=== PATIENT | female | born 1970 | race Caucasian/White ===

== ENCOUNTER 2016-12-01 00:50 | Emergency (ER) | payer MEDICAID ==
[2016-12-01] MEDS ORDERED: HYDROCODONE/ACETAMINOPHEN 5-325 MG 6 TAB/DSPK PO PRN (02:16)
[2016-12-01] MEDS ORDERED: AMOXICILLIN TR/POT CLAVULANATE 500-125 MG TAB PO ONE (02:16)
[2016-12-01] MEDS ORDERED: AMOXICILLIN TRIHYDRATE 500 MG CAPSULE PO ONE (02:16)
--- NOTE | 2016-12-01 02:20 | ER Document Report ---
ED Animal Bite - General Chief Complaint: Dog Bite Stated Complaint: POSSIBLE DOG BITE Time Seen by Provider: 12/01/16 01:54 Notes: Patient is a 46-year-old female that comes emergency department for chief complaint of a bite wound on her left thumb. Patient was bitten by a pit bull. Patient states that she approached her neighbors dog and padded it, she states after this it bit her on the thumb. She states she was bleeding at the cuticle , she thinks she cracked the nail. No other injuries noted. Patient is up-to- date on her tetanus within 5 years, neighbor reported that the dog was up-to- date on his vaccinations although the left with the dog before animal control could be called. Patient is a type II diabetic. TRAVEL OUTSIDE OF THE [place] IN LAST 30 DAYS: No - Related Data Allergies/Adverse Reactions: No Known Allergies Allergy (Unverified 12/01/16 01:00) Past Medical History - General Information source: Patient - Social History Smoking Status: Current Every Day Smoker Chew tobacco use (# tins/day): No Frequency of alcohol use: None Drug Abuse: None Lives with: Family Family History: Reviewed & Not Pertinent Patient has suicidal ideation: No Patient has homicidal ideation: No Endocrine Medical History: Reports: Hx Diabetes Mellitus Type 2 Renal/ Medical History: Denies: Hx Peritoneal Dialysis Past Surgical History: Reports: Hx Section - Immunizations Hx Diphtheria, Pertussis, Tetanus Vaccination: Yes Review of Systems - Review of Systems Constitutional: No symptoms reported EENT: No symptoms reported Cardiovascular: No symptoms reported Respiratory: No symptoms reported Gastrointestinal: No symptoms reported Genitourinary: No symptoms reported Female Genitourinary: No symptoms reported Musculoskeletal: See HPI Skin: See HPI Hematologic/Lymphatic: No symptoms reported Neurological/Psychological: No symptoms reported Physical Exam - Vital signs Vitals: Temp Pulse Resp BP Pulse Ox 98.1 F 87 18 115/70 98 12/01/16 00:56 12/01/16 00:56 12/01/16 00:56 12/01/16 00:56 12/01/16 00:56 Interpretation: Normal - General General appearance: Appears well, Alert In distress: None - HEENT Head: Normocephalic, Atraumatic Eyes: Normal Pupils: PERRL - Respiratory Respiratory status: No respiratory distress Chest status: Nontender Breath sounds: Normal Chest palpation: Normal - Cardiovascular Rhythm: Regular Heart sounds: Normal auscultation Murmur: No - Abdominal Inspection: Normal Distension: No distension Bowel sounds: Normal Tenderness: Nontender Organomegaly: No organomegaly - Back Back: Normal, Nontender - Extremities General upper extremity: Other - There is a small bruise and superficial abrasions over the dorsal aspect of the left thumb, range of motion of the thumb intact, there is a tiny cut at the cuticle with small amount of dried blood, there is a small crack over the nail. No displacement of the nail, normal capillary refill and sensation, normal upper extremity exam otherwise. General lower extremity: Normal inspection, Nontender, Normal color, Normal ROM , Normal temperature, Normal weight bearing. No: Padma's sign - Neurological Neuro grossly intact: Yes Cognition: Normal Orientation: AAOx4 [place] Coma Scale Eye Opening: Spontaneous [place] Coma Scale Verbal: Oriented [place] Coma Scale Motor: Obeys Commands [place] Coma Scale Total: 15 Speech: Normal Motor strength normal: LUE, RUE, LLE, RLE Sensory: Normal - Psychological Associated symptoms: Normal affect, Normal mood - Skin Skin Temperature: Warm Skin Moisture: Dry Skin Color: Normal Course - Re-evaluation Re-evalutation: Discussed both potential x-ray to evaluate for fracture and I also discussed rabies vaccination/globulin. Patient declines, she states that her son received this and she is not interested in this, does not want an x-ray, x-ray will not change treatment. Patient will be started on antibiotics for dog bite , discussed wound care, discussed follow-up, discussed return precautions, patient states understanding and agreement. - Vital Signs Vital signs: Temp Pulse Resp BP Pulse Ox 98 F 87 20 117/70 95 12/01/16 02:25 12/01/16 02:25 12/01/16 02:25 12/01/16 02:25 12/01/16 02:25 Discharge - Discharge Clinical Impression: Dog bite Qualifiers: Encounter type: initial encounter Qualified Code(s): W54.0XXA - Bitten by dog, initial encounter Finger laceration Qualifiers: Encounter type: initial encounter Finger: thumb Damage to nail status: unspecified Foreign body presence: without foreign body Laterality: left Qualified Code(s): S61.012A - Laceration without foreign body of left thumb without damage to nail, initial encounter Condition: Stable Disposition: HOME, SELF-CARE Additional Instructions: Keep wound clean, take antibiotic as directed to completion. Clean with soap and water, keep topical antibiotic over cut. Return for any concerning symptoms- redness, fever, discolored discharge, etc. Prescriptions: Amox Tr/Potassium Clavulanate [Augmentin 635-125 Tablet] 1 tab PO BID 7 Days Forms: Return to Work
[2016-12-01 02:26] VITALS: BP 117/70
== END 2016-12-01 02:36 | disposition home or self-care (01) ==
LOC: ER 00:50
DX: S61.012A Laceration without foreign body of left thumb without damage to nail, initial encounter (principal); W54.0XXA Bitten by dog, initial encounter; F17.200 Nicotine dependence, unspecified, uncomplicated; E11.9 Type 2 diabetes mellitus without complications
CPT/HCPCS: 99283; J3490

== ENCOUNTER 2017-01-11 13:06 | Emergency (ER) | payer MEDICAID ==
--- NOTE | 2017-01-11 13:32 | ER Document Report ---
ED Medical Screen (RME) - General Chief Complaint: Urinary Problem Stated Complaint: ABDOMINAL PAIN Time Seen by Provider: 01/11/17 13:29 Mode of Arrival: Ambulatory Information source: Patient TRAVEL OUTSIDE OF THE [place] IN LAST 30 DAYS: No - HPI Patient complains to provider of: I think I have a prolapsed vagina" Onset: Yesterday - Pt noticed a bulging out of her vaginal area yesterday but was unable to have it evaluated then because, "I slept all day." Is able to make urine but decreased amnt. - Related Data Allergies/Adverse Reactions: No Known Allergies Allergy (Unverified 12/01/16 01:00) Past Medical History Endocrine Medical History: Reports: Hx Diabetes Mellitus Type 2 Renal/ Medical History: Denies: Hx Peritoneal Dialysis Past Surgical History: Reports: Hx Section - Immunizations Hx Diphtheria, Pertussis, Tetanus Vaccination: Yes Physical Exam - Vital signs Vitals: Temp Pulse Resp BP Pulse Ox 98.7 F 120 H 20 114/86 H 99 01/11/17 13:09 01/11/17 13:09 01/11/17 13:09 01/11/17 13:09 01/11/17 13:09 Course - Vital Signs Vital signs: Temp Pulse Resp BP Pulse Ox 98.7 F 120 H 20 114/86 H 99 01/11/17 13:09 01/11/17 13:09 01/11/17 13:09 01/11/17 13:09 01/11/17 13:09
[2017-01-11 14:05] LABS: ABSOLUTE BASOPHILS # (AUTO) 0.1 10^3/uL (0.0-0.2); ABSOLUTE EOSINOPHILS # (AUTO) 0.3 10^3/uL (0.0-0.6); ABSOLUTE LYMPHOCYTES (AUTO) 2.8 10^3/uL (0.5-4.7); ABSOLUTE MONOCYTES (AUTO) 0.7 10^3/uL (0.1-1.4); BASOPHILS % (AUTO) 0.6 % (0-2); EOSINOPHILS % (AUTO) 2.1 % (0-6); HEMATOCRIT 48.5 % (36.0-47.0); HGB HCT DIFFERENCE 2.5; LYMPHOCYTES % (AUTO) 18.8 % (13-45); MEAN CORPUSCULAR VOLUME 91 fl (80-97); RED BLOOD COUNT 5.31 10^6/uL (3.72-5.28); RED CELL DISTRIBUTION WIDTH 13.4 % (11.5-14.0); SEGMENTED NEUTROPHILS % (AUTO) 73.5 % (42-78)
[2017-01-11 14:07] LABS: APPEARANCE,URINE CLOUDY; BILIRUBIN,URINE NEGATIVE (NEGATIVE); GLUCOSE, URINE >=500 mg/dL (NEGATIVE); KETONES,URINE TRACE mg/dL (NEGATIVE); LEUKOCYTE ESTERASE,URINE LARGE (NEGATIVE); NITRITE,URINE NEGATIVE (NEGATIVE); PROTEIN,URINE NEGATIVE (NEGATIVE); URINE SPECIFIC GRAVITY 1.038; UROBILINOGEN,URINE NEGATIVE mg/dL (<2.0)
[2017-01-11 14:14] LABS: ALANINE AMINOTRANSFERASE 37 U/L (9-52); ALBUMIN 4.5 g/dL (3.5-5.0); ALKALINE PHOSPHATASE 123 U/L (38-126); ANION GAP 15 (5-19); ASPARTATE AMINO TRANSFERASE 20 U/L (14-36); BILIRUBIN,DIRECT 0.4 mg/dL (0.0-0.4); BILIRUBIN,TOTAL 0.7 mg/dL (0.2-1.3); BLOOD UREA NITROGEN 9 mg/dL (7-20); CALCIUM 10.6 mg/dL (8.4-10.2); CARBON DIOXIDE 22 mmol/L (22-30); CHLORIDE 99 mmol/L (98-107); CREATININE RESULT 0.61 mg/dL (0.52-1.25); POTASSIUM 4.6 mmol/L (3.6-5.0); SODIUM 135.7 mmol/L (137-145); TOTAL PROTEIN 7.6 g/dL (6.3-8.2)
[2017-01-11] MEDS ORDERED: NORMAL SALINE 1000 ML 2,000 ML IV ONE (14:28)
[2017-01-11 14:30] LABS: GLUCOSE 397 mg/dL (75-110)
[2017-01-11 14:31] LABS: ADD ON TESTING BLD IN LAB ACKNOWLEDGE
[2017-01-11 14:54] LABS: LIPASE 160.8 U/L (23-300)
[2017-01-11] MEDS ORDERED: CEFTRIAXONE RTU 1 GM/D5W 50 ML IV ONE (15:16)
[2017-01-11] MEDS ORDERED: AZITHROMYCIN 250 MG TABLET PO ONE (15:16)
--- NOTE | 2017-01-11 15:19 | ER Document Report ---
HPI - HPI Patient complains to provider of: bladder prolapse Onset: This morning Onset/Duration: Gradual Quality of pain: Burning Pain Level: 5 Context: Patient presents complaining of possible bladder prolapse. Patient complains of discomfort to the perineal area and is concerned that something is bulging from her vagina. Patient reports decreased urine output over the past few days. Patient does complain of low back pain and lower pelvic pain. Patient denies any vaginal bleeding or discharge. Patient states that she suspects that she has skin tags to the perineal area that she has been treating daily with clear fingernail mongolian and removing it with fingernail mongolian remover daily for the past 2 weeks. Associated Symptoms: Other - Decreased urine output, bulge to perineum. denies : Fever, Vomiting Exacerbated by: Denies Relieved by: Denies Similar symptoms previously: No Recently seen / treated by doctor: No - ROS ROS below otherwise negative: Yes Systems Reviewed and Negative: Yes All other systems reviewed and negative - CONSTITUTIONAL Constitutional: DENIES: Fever, Chills - NEURO Neurology: DENIES: Headache - CARDIOVASCULAR Cardiovascular: DENIES: Chest pain - RESPIRATORY Respiratory: DENIES: Coughing - GASTROINTESTINAL Gastrointestinal: REPORTS: Abdominal Pain. DENIES: Nausea, Patient vomiting - URINARY Urinary: REPORTS: Dysuria - REPRODUCTIVE LMP: November 2016 Irregular - MUSCULOSKELETAL Musculoskeletal: REPORTS: Back Pain. DENIES: Extremity pain - DERM Skin Color: Normal Notes: Skin tags to the perineum Past Medical History - General Information source: Patient - Social History Smoking Status: Current Every Day Smoker Chew tobacco use (# tins/day): No Frequency of alcohol use: None Drug Abuse: None Occupation: none Lives with: Spouse/Significant other Family History: Reviewed & Not Pertinent Endocrine Medical History: Reports: Hx Diabetes Mellitus Type 2 Renal/ Medical History: Denies: Hx Peritoneal Dialysis Psychiatric Medical History: Reports: Hx Depression Past Surgical History: Reports: Hx Section, Hx Oral Surgery - Immunizations Hx Diphtheria, Pertussis, Tetanus Vaccination: Yes Vertical Provider Document - CONSTITUTIONAL Agree With Documented VS: No - HR 92 Exam Limitations: No Limitations General Appearance: WD/WN - INFECTION CONTROL TRAVEL OUTSIDE OF THE [place] IN LAST 30 DAYS: No - HEENT HEENT: Atraumatic, Normocephalic - NECK Neck: Normal Inspection, Supple - RESPIRATORY Respiratory: Breath Sounds Normal, No Respiratory Distress, Chest Non-Tender O2 Sat by Pulse Oximetry: 99 - CARDIOVASCULAR Cardiovascular: Regular Rate, Regular Rhythm, No Murmur. negative: Tachycardia - GI/ABDOMEN Gastrointestinal: Abdomen Soft, Abdomen Tender - suprapubic - REPRODUCTIVE Female Genitalia: Abnormal Inspection - Patient with condyloma acuminata to the vaginal introitus and perirectally. negative: CMT, Adnexal Pain-Right, Adnexal Pain-Left Notes: Patient with vaginal discharge, no cervical motion tenderness, no adnexal tenderness RN Aminah as standby - BACK Back: CVA Tenderness-Left. negative: CVA Tenderness-Right - MUSCULOSKELETAL/EXTREMETIES Musculoskeletal/Extremeties: JOSHUA DEE - NEURO Level of Consciousness: Awake, Alert, Appropriate Motor/Sensory: No Motor Deficit - DERM Integumentary: Warm, Dry, Rash - Patient with rash consistent with condyloma acuminata to the perineal area Course - Re-evaluation Re-evalutation: 01/11/17 17:43 Patient has only had 1 L of her IV fluids to infuse. Patient has been taking oral fluids at bedside without any problems. Patient declines waiting for additional IV fluids to infuse. - Vital Signs Vital signs: Temp Pulse Resp BP Pulse Ox 98.7 F 120 H 20 114/86 H 99 01/11/17 13:09 01/11/17 13:09 01/11/17 13:09 01/11/17 13:09 01/11/17 13:09 - Laboratory Result Diagrams: 01/11/17 13:40 01/11/17 13:40 Laboratory results interpreted by me: 01/11/17 01/11/17 01/11/17 13:40 13:40 13:40 WBC 15.0 H RBC 5.31 H Hgb 17.0 H Hct 48.5 H Plt Count 460 H Absolute Neutrophils 11.0 H Sodium 135.7 L Glucose 397 H Calcium 10.6 H Urine Glucose (UA) >=500 H Urine Ketones TRACE H Urine Blood MODERATE H Ur Leukocyte Esterase LARGE H 01/11/17 17:40 Labs- Entire Visit 01/11/17 01/11/17 01/11/17 13:40 13:40 13:40 WBC 15.0 H RBC 5.31 H Hgb 17.0 H Hct 48.5 H MCV 91 MCH 32.0 MCHC 35.0 RDW 13.4 Plt Count 460 H Seg Neutrophils % 73.5 Lymphocytes % 18.8 Monocytes % 5.0 Eosinophils % 2.1 Basophils % 0.6 Absolute Neutrophils 11.0 H Absolute Lymphocytes 2.8 Absolute Monocytes 0.7 Absolute Eosinophils 0.3 Absolute Basophils 0.1 Sodium 135.7 L Potassium 4.6 Chloride 99 Carbon Dioxide 22 Anion Gap 15 BUN 9 Creatinine 0.61 Est GFR ( Amer) > 60 Est GFR (Non-Af Amer) > 60 Glucose 397 H Calcium 10.6 H Total Bilirubin 0.7 Direct Bilirubin 0.4 Indirect Bilirubin Not Reportable Neonat Total Bilirubin Not Reportable AST 20 ALT 37 Alkaline Phosphatase 123 Total Protein 7.6 Albumin 4.5 Lipase Urine Color YELLOW Urine Appearance CLOUDY Urine pH 6.0 Ur Specific [place] 1.038 Urine Protein NEGATIVE Urine Glucose (UA) >=500 H Urine Ketones TRACE H Urine Blood MODERATE H Urine Nitrite NEGATIVE Urine Bilirubin NEGATIVE Urine Urobilinogen NEGATIVE Ur Leukocyte Esterase LARGE H Urine WBC (Auto) 161 Urine RBC (Auto) 36 Urine Bacteria (Auto) TRACE Squamous Epi Cells Auto 6 Urine Mucus (Auto) RARE Urine Ascorbic Acid NEGATIVE Urine HCG, Qual Epi Cells (Wet Prep) Bacteria (Wet Prep) Trichomonas (Wet Prep) Vaginal WBC Vaginal RBC Vaginal Yeast Chlamydia DNA (PCR) N.gonorrhoeae DNA (PCR) 01/11/17 01/11/17 01/11/17 13:40 13:40 15:09 WBC RBC Hgb Hct MCV MCH MCHC RDW Plt Count Seg Neutrophils % Lymphocytes % Monocytes % Eosinophils % Basophils % Absolute Neutrophils Absolute Lymphocytes Absolute Monocytes Absolute Eosinophils Absolute Basophils Sodium Potassium Chloride Carbon Dioxide Anion Gap BUN Creatinine Est GFR ( Amer) Est GFR (Non-Af Amer) Glucose Calcium Total Bilirubin Direct Bilirubin Indirect Bilirubin Neonat Total Bilirubin AST ALT Alkaline Phosphatase Total Protein Albumin Lipase 160.8 Urine Color Urine Appearance Urine pH Ur Specific [place] Urine Protein Urine Glucose (UA) Urine Ketones Urine Blood Urine Nitrite Urine Bilirubin Urine Urobilinogen Ur Leukocyte Esterase Urine WBC (Auto) Urine RBC (Auto) Urine Bacteria (Auto) Squamous Epi Cells Auto Urine Mucus (Auto) Urine Ascorbic Acid Urine HCG, Qual NEGATIVE Epi Cells (Wet Prep) Bacteria (Wet Prep) Trichomonas (Wet Prep) Vaginal WBC Vaginal RBC Vaginal Yeast Chlamydia DNA (PCR) NOT DETECTED N.gonorrhoeae DNA (PCR) NOT DETECTED 01/11/17 15:09 WBC RBC Hgb Hct MCV MCH MCHC RDW Plt Count Seg Neutrophils % Lymphocytes % Monocytes % Eosinophils % Basophils % Absolute Neutrophils Absolute Lymphocytes Absolute Monocytes Absolute Eosinophils Absolute Basophils Sodium Potassium Chloride Carbon Dioxide Anion Gap BUN Creatinine Est GFR ( Amer) Est GFR (Non-Af Amer) Glucose Calcium Total Bilirubin Direct Bilirubin Indirect Bilirubin Neonat Total Bilirubin AST ALT Alkaline Phosphatase Total Protein Albumin Lipase Urine Color Urine Appearance Urine pH Ur Specific [place] Urine Protein Urine Glucose (UA) Urine Ketones Urine Blood Urine Nitrite Urine Bilirubin Urine Urobilinogen Ur Leukocyte Esterase Urine WBC (Auto) Urine RBC (Auto) Urine Bacteria (Auto) Squamous Epi Cells Auto Urine Mucus (Auto) Urine Ascorbic Acid Urine HCG, Qual Epi Cells (Wet Prep) 3+ EPITHELIALS SEEN Bacteria (Wet Prep) 4+ BACTERIA SEEN Trichomonas (Wet Prep) TRICHOMONAS SEEN Vaginal WBC 2+ WBCS SEEN Vaginal RBC FEW RBCS SEEN Vaginal Yeast NO YEAST SEEN Chlamydia DNA (PCR) N.gonorrhoeae DNA (PCR) 01/11/17 17:43 01/11/17 17:50 Discharge - Discharge Clinical Impression: Dehydration, Trichomonas vaginitis, Genital warts, Hyperglycemia UTI (urinary tract infection) Qualifiers: Urinary tract infection type: site unspecified Hematuria presence: with hematuria Qualified Code(s): N39.0 - Urinary tract infection, site not specified Condition: Stable Disposition: HOME, SELF-CARE Instructions: Urinary Tract Infection ([facility]), Trimethoprim-Sulfa ([facility]), Trichomonas Infection ([facility]), Genital Warts ([facility]), Rocephin ([facility]), Azithromycin ( [facility]), Metronidazole ([facility]), Dehydration ([facility]), Intravenous (IV) Fluids ([facility]) Additional Instructions: Return immediately for any new or worsening symptoms Followup with your primary care provider, call tomorrow to make a followup appointment Follow-up with the health department for further management of your genital warts Have your partner seek treatment for trichomonas No sexual intercourse until all your lesions have resolved Safe sex practices Urine cultures pending, we will call if you need any different treatment Increase oral fluids to stay well-hydrated Prescriptions: Naproxen [Naprosyn 250 Nmg Tablet] 1 tab PO BID #14 tablet Sulfamethoxazole/Trimethoprim [Bactrim Ds Tablet] 1 each PO BID #20 tablet Referrals: DWIGHT SAGE MD [Primary Care Provider] - Follow up as needed [facility] [NO LOCAL MD] - Follow up tomorrow
[2017-01-11] MEDS ORDERED: INSULIN REG, HUMAN 100 UNIT/ML 3 ML VIAL (PYX) SUBCUT ONE (15:31)
[2017-01-11] MEDS ORDERED: METRONIDAZOLE 500 MG TABLET PO ONE (16:03)
[2017-01-11 16:58] LABS: CHLAM PCR NOT DETECTED (NOT DETECT)
[2017-01-11 17:56] VITALS: BP 119/85
== END 2017-01-11 17:56 | disposition home or self-care (01) ==
LOC: ER 13:06
DX: A59.01 Trichomonal vulvovaginitis (principal); A63.0 Anogenital (venereal) warts; N39.0 Urinary tract infection, site not specified; R31.9 Hematuria, unspecified; E86.0 Dehydration; E11.65 Type 2 diabetes mellitus with hyperglycemia; R10.2 Pelvic and perineal pain; M54.5 Low back pain; F17.200 Nicotine dependence, unspecified, uncomplicated
CPT/HCPCS: 99283; 96361; 96365; 36415; 87086; 87210; 82962; 83690; 85025; 81025; 87088; 80053; 81001; 87186; 87491; 87591; Q0144; J1815; J3490; J7030; J0696